=== PATIENT | female | born 1950 | race Caucasian/White ===

== ENCOUNTER 2017-11-21 13:56 | Outpatient (CLI) | payer MEDICARE | END 2017-11-21 13:57 | disposition home or self-care (01) | LOC: BICMAMMO 13:56 | PROVIDERS: ATTEND Obstetrics & Gynecology | DX: Z12.31 Encounter for screening mammogram for malignant neoplasm of breast (principal); R92.1 Mammographic calcification found on diagnostic imaging of breast | CPT/HCPCS: 77063; 77067 ==

== ENCOUNTER 2018-03-24 15:02 | Outpatient (CLI) | payer MEDICARE | END 2018-03-24 15:03 | disposition home or self-care (01) | LOC: CTENTCT 15:02 | PROVIDERS: ATTEND Otolaryngology Plastic Surgery within the Head & Neck | DX: J32.9 Chronic sinusitis, unspecified (principal) | CPT/HCPCS: 70486 ==

== ENCOUNTER 2018-08-07 12:03 | Outpatient (CLI) | payer MEDICARE ==
--- NOTE | 2018-08-07 12:27 | RAD ---
FLumbar spine 2 views: 08/07/2018 COMPARISON: None HISTORY: Back pain with left sided burning/sciatica/radiculopathy FINDINGS: Lateral exam demonstrates no significant anterolisthesis or retrolisthesis. Multilevel ante rior osteophyte formation noted within the lower thoracic spine and upper lumbar spine. Mild anterior osteophyte formation also noted at L3-4 and L4-5. Bilateral facet hypertrophy at L5-S1 present. Fron neil imaging demonstrates lateral osteophyte formation at L2-3, right greater than left. No acute osse ous abnormality noted. IMPRESSION: Degenerative change as described above. MRI suggested if there are radicular symptoms.
--- NOTE | 2018-08-07 12:28 | RAD ---
FFrontal and lateral imaging of the thoracic spine: 4. 519 HISTORY: Radicular pain, burning on the left FINDINGS: There is extensive multilevel disc space narrowing with degenerative endplate change and an terior osteophyte formation involving the mid and lower thoracic spine. No acute fracture. No anterol isthesis or retrolisthesis. Frontal imaging demonstrates multilevel lateral osteophyte formation, rig ht greater than left, primarily involving the mid and lower thoracic spine. IMPRESSION: Multilevel thoracic spine degenerative change as above. No acute osseous abnormality.
== END 2018-08-07 12:04 | disposition home or self-care (01) ==
LOC: BICRAD 12:03
PROVIDERS: ATTEND Specialist
DX: M47.24 Other spondylosis with radiculopathy, thoracic region (principal); M47.816 Spondylosis without myelopathy or radiculopathy, lumbar region
CPT/HCPCS: 72072; 72100

== ENCOUNTER 2018-08-26 13:44 | Outpatient (CLI) | payer MEDICARE ==
--- NOTE | 2018-08-26 15:19 | MRI ---
MR of the thoracic spine without contrast INDICATION: History of radiculopathy of the upper back. The patient has upper back pain that extends between both shoulder blades for the last several years. TECHNIQUE: Multiplanar multisequence MR images were obtained of the thoracic spine without contrast. Spine count series was provided. COMPARISON: Radiographs of the thoracic spine dated 08/07/2018. FINDINGS: Bone marrow signal intensity: Normal Spinal alignment: Normal Spinal cord: Normal signal intensity and contour. Paravertebral soft tissues. There is a small 1 cm cyst within the superior pole of right kidney. Mehul tional smaller cyst is seen within the left mid kidney measuring approximately 7 mm. Vertebral levels: T1-T2: There is a small left parameningeal cyst. No appreciable central canal or neural foraminal cate rowing is evident. T2-T3: There is no appreciable central canal or neural foraminal narrowing. T3-T4: There is no appreciable central canal or neural foraminal narrowing. T4-T5: There is no appreciable central canal or neural foraminal narrowing. T5-T6: There is no appreciable central canal or neural foraminal narrowing. T6-T7:, There is no appreciable central canal or neural foraminal narrowing. T7-T8: There is no appreciable central canal or neural foraminal narrowing. T8-T9: There is no appreciable central canal or neural foraminal narrowing. T9-T10: There is a small right parameningeal cyst. No appreciable central canal or neural foraminal n arrowing is evident. T10-T11: There is a small right parameningeal cyst. No appreciable central canal or neural foraminal narrowing is demonstrated. T11-T12: There is no appreciable central canal or neural foraminal narrowing. There is a small right parameningeal cysts. T12-L1: There is no appreciable central canal or neural foraminal narrowing. There is multilevel mild disc degenerative disease. IMPRESSION: 1. 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 Appreciable central canal or neural foraminal n arrowing demonstrated. No acute fracture demonstrated. 2. Small bilateral renal cysts.
--- NOTE | 2018-08-26 15:51 | MRI ---
MRI lumbar spine noncontrast: HISTORY: Exam lumbar spine MRI without contrast COMPARISON: 10/10/2016 FINDINGS: Appropriate T1 marrow signal intensity of the lumbar vertebra. Lumbar spine vertebral body height is maintained. No fracture. No significant STIR hyperintensity to suggest vertebral body edema or ligamentous injury. Osseous hemangioma in the right aspect of L2. Renal pelvic and cortical T2 hyperintensities compatible with bilateral parapelvic and cortical cysts Symmetric signal intensity of the psoas muscles Conus medullaris terminates at the inferior aspect of T12 T12-L1:No significant central canal stenosis. Neural foramina are patent. L1-2:Mild loss of disc space height. No significant central canal stenosis. Neural foramina are paten t L2-3:Desiccation without significant loss of disc space height. No significant central canal stenosis or neural foraminal narrowing L3-4:Desiccation without significant loss of disc space height. Generalized disc bulge, minimal flavu m thickening and facet hypertrophy are present. No significant central canal stenosis. Neural foramina are patent. L4-5:Desiccation with mild loss of disc space height. Generalized disc bulge, ligament flavum thicken ing and facet hypertrophy result in mild central canal stenosis. Mild narrowing of the right subarticular zone with some mass effect upon the traversing right L5 nerve root. The nerve root is no t obscured. Mild right and minimal left foraminal narrowing. There is a small amount of fluid in the facet bilaterally L5-S1:Desiccation without significant loss of disc space height. Generalized disc bulge, ligament fla vum thickening and facet hypertrophy result in mild central canal stenosis. There is a small amount of fluid in both facet joints. Neural foramina are patent. IMPRESSION: Degenerative changes of the lumbar spine as detailed above. There is no high-grade central canal sten osis or high-grade foraminal narrowing. There is mild narrowing of the right subarticular zone at L4-L5.
== END 2018-08-26 13:45 | disposition home or self-care (01) ==
LOC: BICMRI 13:44
PROVIDERS: ATTEND Specialist
DX: M47.26 Other spondylosis with radiculopathy, lumbar region (principal); M47.24 Other spondylosis with radiculopathy, thoracic region; M47.27 Other spondylosis with radiculopathy, lumbosacral region; M48.061 Spinal stenosis, lumbar region without neurogenic claudication; M48.04 Spinal stenosis, thoracic region; N28.1 Cyst of kidney, acquired
CPT/HCPCS: 72146; 72148

== ENCOUNTER 2018-12-23 13:58 | Outpatient (CLI) | payer MEDICARE ==
--- NOTE | 2018-12-23 16:15 | MMO ---
Bilateral MAMMO Bilat Screen [facility]. CLINICAL HISTORY: Patient is 68 years old and is seen for screening. The patient has no family history of breast cancer. The patient has no personal history of cancer. VIEWS: The views performed were: bilateral craniocaudal with tomosynthesis; bilateral mediolateral oblique with tomosynthesis; and left mediolateral oblique. FILMS COMPARED: The present examination has been compared to prior imaging studies performed at [facility] on 03/23/2014, 03/24/2015, 08/23/2016 and 11/21/2017. MAMMOGRAM FINDINGS: There are scattered fibroglandular densities. There are stable benign appearing calcifications seen in both breasts. There are no suspicious masses, suspicious calcifications, or new areas of architectural distortion. IMPRESSION: THERE IS NO MAMMOGRAPHIC EVIDENCE OF MALIGNANCY. A ROUTINE FOLLOW-UP MAMMOGRAM IN 1 YEAR IS RECOMMENDED. THE RESULTS OF THIS EXAM WERE SENT TO THE PATIENT. ACR BI-RADS Category 2 - Benign finding MAMMOGRAPHY NOTE: 1. A negative mammogram report should not delay a biopsy if a dominant of clinically suspicious mass is present. 2. Approximately 10% to 15% of breast cancers are not detected by mammography. 3. Adenosis and dense breasts may obscure an underlying neoplasm. Reported by: DACIA DE LA ROSA MD Electonically Signed: [id number]
--- NOTE | 2018-12-23 16:51 | BD ---
Exam: DEXA Bone Density 12/23/18 HISTORY: Osteopenia. FINDINGS: Lumbar Spine: BMD (g/cm2) T-SCORE Z-SCORE L1 1.095 1.0 2.8 L2 1.117 0.8 2.9 L3 1.121 0.3 2.5 L4 1.090 0.3 2.5 L1-L4 1.106 0.5 2.6 Femoral Neck: 0.765 -0.8 1.0 Total Femur: 0.924 -0.2 1.3 Impression: Lumbar spine: WHO classification - normal. Fracture risk is not increased. Femoral neck: WHO classification - normal. FRAX not reported because all T-scores are at or above -1. 0. POS: OFF
== END 2018-12-23 13:59 | disposition home or self-care (01) ==
LOC: BICMAMMO 13:58
PROVIDERS: ATTEND Specialist
DX: Z12.31 Encounter for screening mammogram for malignant neoplasm of breast (principal); Z13.820 Encounter for screening for osteoporosis; M85.80 Other specified disorders of bone density and structure, unspecified site
CPT/HCPCS: 77063; 77067; 77080

== ENCOUNTER 2019-06-22 15:45 | Outpatient (CLI) | payer MEDICARE ==
--- NOTE | 2019-06-22 16:04 | RAD ---
Exam: XR Shoulder Rt 3 View STANDARD HISTORY: Right shoulder pain which has been getting worse. COMPARISON: None FINDINGS: The coracoclavicular and acromioclavicular distances are within normal limits. Minimal right acromioc lavicular joint osteoarthritis is present. No acute fracture, dislocation, or other acute osseous abnormality is identified. IMPRESSION: No acute osseous abnormality is identified.
== END 2019-06-22 15:46 | disposition home or self-care (01) ==
LOC: BICRAD 15:45
PROVIDERS: ATTEND Specialist
DX: M25.511 Pain in right shoulder (principal)

== ENCOUNTER 2020-05-03 10:08 | Outpatient (CLI) | payer MEDICARE ==
--- NOTE | 2020-05-03 11:16 | RAD ---
3 views of the left ribs: 05/03/2020 COMPARISON: None HISTORY: Left rib pain FINDINGS: There is degenerative change at the atlantoaxial interspace. No displaced left-sided rib fr acture is seen. If symptoms persist, CT suggested. IMPRESSION: No displaced left rib fracture seen.
--- NOTE | 2020-05-03 11:17 | RAD ---
Frontal and lateral imaging of the thoracic spine with swimmer's lateral view: 05/03/2020 COMPARISON: 08/07/2018 HISTORY: Pain FINDINGS: 3 views are provided. At C5-6 and C6-7 there is disc space narrowing with degenerative endplate change and anterior osteoph yte formation. Cervicothoracic junction appears intact on the swimmer's lateral view. On the lateral examination there is multilevel disc space narrowing with degenerative endplate change and an terior osteophyte formation throughout the thoracic spine, most prominent within the inferior thoracic spine and at the thoracolumbar junction. Frontal imaging demonstrates an intact thoracic ped icles with lateral osteophyte formation in the mid and lower thoracic region. No displaced fracture. IMPRESSION: Multilevel thoracic and cervical spine degenerative change, similar when compared to the prior examination.
== END 2020-05-03 10:09 | disposition home or self-care (01) ==
LOC: BICRAD 10:08
PROVIDERS: ATTEND Specialist
DX: S22.000A Wedge compression fracture of unspecified thoracic vertebra, initial encounter for closed fracture (principal); R07.89 Other chest pain; M47.812 Spondylosis without myelopathy or radiculopathy, cervical region; M47.814 Spondylosis without myelopathy or radiculopathy, thoracic region
CPT/HCPCS: 72072

== ENCOUNTER 2020-06-01 12:41 | Outpatient (CLI) | payer MEDICARE, OTHER | END 2020-06-01 12:42 | disposition home or self-care (01) | LOC: BICULT 12:41 | PROVIDERS: ATTEND Specialist | DX: N39.0 Urinary tract infection, site not specified (principal); N28.89 Other specified disorders of kidney and ureter | CPT/HCPCS: 76770 ==

== ENCOUNTER 2023-06-27 11:32 | Outpatient (CLI) | payer MEDICARE | END 2023-06-27 11:33 | disposition home or self-care (01) | LOC: BICRAD 11:32 | PROVIDERS: ATTEND Specialist | DX: M25.551 Pain in right hip (principal); M25.552 Pain in left hip ==